=== PATIENT | female | born 1995 | race Caucasian/White ===

== ENCOUNTER 2017-11-16 14:30 | Emergency (ER) | payer OTHER ==
[2017-11-16 16:04] LABS: BASOPHIL % 0.4 % (0-2); PLATELET COUNT 142 x10^3mcL (130-400); RED CELL DISTRIBUTION WIDTH 12.7 % (11.5-14.5)
[2017-11-16 16:08] LABS: CALCIUM 9.1 mg/dL (8.5-10.1); CARBON DIOXIDE 24.6 mmol/L (21-32); CHLORIDE SERUM 101 mmol/L (98-107); CREATININE SERUM 0.7 mg/dL (0.6-1.0); GFR1 > 60 mL/min; GLUCOSE SERUM 105 mg/dL (74-106); POTASSIUM SERUM 3.5 mmol/L (3.5-5.1); SODIUM SERUM 137 mmol/L (136-145)
[2017-11-16 16:18] LABS: AMPHETAMINE QUAL UR NONE DETECTED (See below)
[2017-11-16 16:33] VITALS: BP 124/61
== END 2017-11-16 16:33 | disposition home or self-care (01) ==
LOC: ED 14:30
PROVIDERS: Emergency Medicine
DX: T62.8X1A Toxic effect of other specified noxious substances eaten as food, accidental (unintentional), initial encounter (principal); Y92.89 Other specified places as the place of occurrence of the external cause
CPT/HCPCS: 36415

== ENCOUNTER 2018-08-04 22:39 | Emergency (ER) | payer OTHER ==
[~2018-08-04] VITALS: Ht 152.4 cm; Wt 59.4 kg
[2018-08-04 22:48] VITALS: Ht 152.4 cm; Wt 59.4 kg
[2018-08-04 23:31] VITALS: BP 94/56
== END 2018-08-04 23:31 | disposition home or self-care (01) ==
LOC: ED 22:39
DX: M25.562 Pain in left knee (principal)

== ENCOUNTER 2019-09-19 15:25 | Emergency (ER) | payer OTHER ==
[~2019-09-19] VITALS: Ht 152.4 cm; Wt 59.0 kg
[2019-09-19 15:34] VITALS: Ht 152.4 cm; Wt 59.0 kg
[2019-09-19 17:03] LABS: BASOPHIL % 0.5 % (0-2); PLATELET COUNT 132 x10^3mcL (130-400); RED CELL DISTRIBUTION WIDTH 12.8 % (11.5-14.5)
[2019-09-19 17:05] LABS: microscopic required? YES; urine erythrocyte 3+ (NEGATIVE)
[2019-09-19 21:16] VITALS: BP 111/64
== END 2019-09-19 21:16 | disposition home or self-care (01) ==
LOC: ED 15:25
PROVIDERS: Specialist
DX: O20.0 Threatened abortion (principal); O23.41 Unspecified infection of urinary tract in pregnancy, first trimester; Z3A.01 Less than 8 weeks gestation of pregnancy
CPT/HCPCS: Q0092